=== PATIENT | male | born 1950 | race Caucasian/White ===

== ENCOUNTER → 2017-07-14 | Outpatient (CLI) | payer MEDICARE, OTHER ==
[~2017-07-14] MED LIST: DOXA4TAB2 PO; FLUT16SP22 NS
--- NOTE | 2017-07-14 14:31 | Diagnostic Imaging Report ---
INDICATION: COPD and dyspnea. TIME OF EXAM: 02:39 p.m. Correlation is made with prior study from 01/29/2014. FINDINGS: The heart size is stable. The lungs are hyperinflated consistent with COPD. There appears to be some chronic parenchymal density in the medial aspect of the right base, stable. No new parenchymal abnormality is seen. There is no effusion. No pneumothorax is identified. IMPRESSION: Stable chest radiographs when compared with examination from 01/29/2014. Dictated by: Dictated on workstation # [id number]
== END ==
LOC: RAD 13:57
PROVIDERS: ATTEND Internal Medicine
DX: J44.9 Chronic obstructive pulmonary disease, unspecified (principal)
CPT/HCPCS: 71046

== ENCOUNTER 2018-01-18 11:45 | Day surgery (SDC) | payer MEDICARE, OTHER ==
[~2018-01-18] VITALS: Ht 188 cm; Wt 98.9 kg
--- OUTSIDE RECORDS SUMMARY | 2018-01-18 11:51 | XMS REPORT | Continuity of Care Document ---
Author Author [facility] Organization [facility] Address Unknown Phone Unavailable Allergies Active Description Code Type Severity Reaction Onset Reported/Identified Relationship to Patient Clinical Status Yes No Known Allergies [id number] Drug Allergy Unknown N/A 01/29/2014 Medications There is no data. Problems Date Dx Coded Attending Type Code Diagnosis Diagnosed By 04/11/2014 LOPEZ JAMES, BENJI P Ot 173.32 SQUAMOUS CELL CARCINOMA OF SKIN OF OTH 04/11/2014 LOPEZ JAMES, BENJI P Ot 784.2 04/11/2014 LOPEZ JAMES, BENJI P Ot 785.6 ENLARGEMENT LYMPH NODES 04/13/2014 LOPEZ JAMES, BENJI P Ot 709.9 04/13/2014 LOPEZ JAMES, BENJI P Ot 784.2 04/13/2014 LOPEZ JAMES, BENJI P Ot V72.63 04/13/2014 LOPEZ JAMES, BENJI P Ot V74.8 05/03/2014 LOPEZ JAMES, BENJI P Ot 709.9 05/03/2014 LOPEZ JAMES, BENJI P Ot 784.2 05/03/2014 LOPEZ JAMES, BENJI P Ot V72.63 05/03/2014 LOPEZ JAMES, BENJI P Ot V74.8 05/20/2014 LOPEZ JAMES, BENJI P Ot 709.9 05/20/2014 LOPEZ JAMES, BENJI P Ot 784.2 05/20/2014 LOPEZ JAMES, BEJNI P Ot V72.63 05/20/2014 LOPEZ JAMES, BENJI P Ot V74.8 10/03/2014 SINDI CORTES DO Ot 496 10/03/2014 SINDI CORTES DO Ot 496 10/04/2014 SINDI CORTES DO Ot 496 10/04/2014 SINDI CORTES DO Ot 496 10/24/2014 SINDI CORTES DO Ot 496 11/15/2014 SINDI CORTES DO Ot 496 01/16/2015 SINDI CORTES DO Ot 780.79 01/16/2015 SINDI CORTES DO Ot 786.09 01/16/2015 BENJI MARROQUIN MD Ot 709.9 01/16/2015 BENJI MARROQUIN MD Ot 784.2 01/16/2015 BENJI MARROQUIN MD Ot V72.63 01/16/2015 BENJI MARROQUIN MD Ot V74.8 01/16/2015 SINDI CORTES DO Ot 496 02/05/2015 SINDI CORTES DO Ot 780.79 02/05/2015 SINDI CORTES DO Ot 786.09 02/05/2015 BENJI MARROQUIN MD Ot 709.9 02/05/2015 BENJI MARROQUIN MD Ot 784.2 02/05/2015 BENJI MARROQUIN MD Ot V72.63 02/05/2015 BENJI MARROQUIN MD Ot V74.8 02/05/2015 SINDI CORTES DO Ot 496 07/14/2017 SINDI CORTES DO Ot 780.79 OTH MALAISE FATIGUE 07/14/2017 SINDI CORTES DO Ot 786.09 RESPIRATORY ABNORM NEC 07/14/2017 BENJI MARROQUIN MD Ot 709.9 SKIN DISORDER NOS 07/14/2017 BENJI MARROQUIN MD Ot 784.2 SWELLING IN HEAD NECK 07/14/2017 BENJI MARROQUIN MD Ot V72.63 PRE-PROCEDURAL LABORATORY EXAMINATION 07/14/2017 BENJI MARROQUIN MD Ot V74.8 SCREEN-BACTERIAL DIS NEC 07/14/2017 SINDI CORTES DO Ot 496 CHR AIRWAY OBSTRUCT NEC 07/15/2017 SINDI CORTES DO, Ot J44.9 CHRONIC OBSTRUCTIVE PULMONARY DISEASE, U 07/21/2017 SINDI CORTES DO, Ot J44.9 CHRONIC OBSTRUCTIVE PULMONARY DISEASE, U 08/12/2017 SINDI CORTES DO, Ot J44.9 CHRONIC OBSTRUCTIVE PULMONARY DISEASE, U 08/29/2017 SINDI CORTES DO, Ot J44.9 CHRONIC OBSTRUCTIVE PULMONARY DISEASE, U Procedures There is no data. Results There is no data. Encounters ACCT No. Visit Date/Time Discharge Status Pt. Type Provider Facility Loc./Unit Complaint [id number] 07/14/2017 13:57:00 07/14/2017 23:59:59 [facility] Outpatient SINDI CORTES DO [facility] RAD J44.9,R06.00 [id number] 10/02/2014 08:25:00 10/02/2014 23:59:59 C[facility] Outpatient SINDI CORTES DO [facility] RT Chronic airway obstruction [id number] 04/11/2014 07:52:00 04/11/2014 13:00:00 DIS Outpatient BENJI MARROQUIN MD [facility] LEFT RELIGION LESION; NASAL PHARYNGEAL MASS [id number] 2014 08:28:00 2014 23:59:59 CLS Outpatient BENJI MARROQUIN MD [facility] PREOP LEFT RELIGION LESION; NASAL PHARYNGEAL MASS [id number] 01/29/2014 06:33:00 01/29/2014 23:59:59 CLS Outpatient SIDNI CORTES DO [facility] CARD DYSPNEA,FATIGUE
[2018-01-18 12:15] VITALS: BP 157/98
[2018-01-18] MEDS ORDERED: LACTATED RINGERS 1,000 ML IV SCH (12:30)
[2018-01-18] MEDS ORDERED: MIDAZOLAM 2 MG/2 ML (VERSED) VIAL ONE (13:02)
[2018-01-18] MEDS ORDERED: fentaNYL INJECTION 100 MCG/2 ML AMP ONE (13:02)
[2018-01-18] MEDS ORDERED: FINA5TAB6 PO (13:04)
[2018-01-18] MEDS ORDERED: ZYZAL PO (13:04)
[2018-01-18] MEDS ORDERED: TAMS0.4C98 PO (13:04)
[2018-01-18] MEDS ORDERED: MONT10TA21 PO (13:04)
--- NOTE | 2018-01-18 13:09 | History & Physicial ---
History of Present Illness History of Present Illness Reason for visit/HPI Painful swelling along the right scrotum. Exam confirms an abscess requiring I& D Date of Admission 01/18/18 Date Seen by a Provider: Jan 18, 2018 Time Seen by a Provider: 11:25 I consulted on this patient on 01/18/18 13:07 Attending Physician Ed Enrique MD Admitting Physician Makr Sanchez DO Consult Allergies and Home Medications Allergies Coded Allergies: No Known Allergies (Unverified Allergy, Unknown, 01/29/14) Home Medications Doxazosin Mesylate 4 Mg Tablet, 4 MG PO DAILY, (Reported) Finasteride 5 Mg Tablet, 5 MG PO DAILY, (Reported) Fluticasone Propionate 16 Gm Naspr, 2 SPRAYS NS DAILY, (Reported) Montelukast Sodium 10 Mg Tablet, 10 MG PO DAILY, (Reported) Tamsulosin HCl 0.4 Mg Cap, 0.4 MG PO DAILY, (Reported) [Zyzal] , 1 EA PO DAILY, (Reported) Patient Home Medication List Home Medication List Reviewed: Yes Past Bysfuyt-Yityfa-Ilztlu Hx Patient Social History Marrital Status: Employed/Student: retired Alcohol Use: Rarely Uses Alcohol Beverage of Choice: Beer Recreational Drug Use: No Smoking Status: Current Everyday Smoker Type Used: Cigarettes Recent Foreign Travel: No Contact w/other who traveled: No Recent Hopitalizations: No Seasonal Allergies Seasonal Allergies: Yes Surgeries Yes Respiratory No Cardiovascular No Gastrointestinal No Musculoskeletal No Review of Systems Constitutional: no symptoms reported EENTM: no symptoms reported Respiratory: no symptoms reported Cardiovascular: no symptoms reported Gastrointestinal: no symptoms reported Genitourinary: see HPI Musculoskeletal: no symptoms reported Skin: see HPI Psychiatric/Neurological: No Symptoms Reported Physical Exam Vital Signs Vital Signs - First Documented 01/18/18 12:15 Temp 98.4 Pulse 87 Resp 18 B/P (MAP) 157/98 (117) Pulse Ox 93 O2 Delivery Room Air Capillary Refill : Height, Weight, BMI Height: 6'2.00" Weight: 218lbs. 2.0oz. 98.724931sq; 28.0 BMI Method: General Appearance: Mild Distress Neck: Normal Inspection Cardiovascular: Regular Rate, Rhythm Gastrointestinal: Non Tender, Soft Genital/Rectal: Other Skin: Warm/Dry Comments Abscess along the right hemiscrotum Assessment/Plan Assessment and Plan Abscess of scrotum, for I&D Admission Diagnosis Admission Status: Other (Outpt Proc) ED ENRIQUE MD Jan 18, 2018 13:09
--- NOTE | 2018-01-18 13:10 | Progress Note-Pre Operative ---
Pre-Operative Progress Note H&P Reviewed The H&P was reviewed, patient examined and no changes noted. Date Seen by Provider: Jan 18, 2018 Time Seen by Provider: 11:25 Date H&P Reviewed: Jan 18, 2018 Time H&P Reviewed: 13:09 Pre-Operative Diagnosis: Abscess of scrotum ED ENRIQUE MD Jan 18, 2018 13:10
[2018-01-18] MEDS ORDERED: proPOfol 200 MG/20 ML (DIPRIVAN) VIAL IV ONE (13:14)
[2018-01-18] MEDS ORDERED: LIDOCAINE PF 2% 2 ML (XYLOCAINE) VIAL ONE (13:14)
[2018-01-18] MEDS ORDERED: SEVOFLURANE (ULTANE) 15 ML INHAL SOLN ONE ×3 (13:14→14:16)
[2018-01-18] MEDS ORDERED: DEXAMETHASONE 10 MG/ML (DECADRON) 1 ML VIAL ONE (13:14)
[2018-01-18] MEDS ORDERED: ONDANSETRON 4 MG/2 ML (SDV) Z0FRAN ONE (13:14)
[2018-01-18] MEDS ORDERED: ACHD5005 PO (13:15)
[2018-01-18] MEDS ORDERED: SUCCINYLCHOLINE INJ 100 MG/5 ML SYR ONE (13:17)
[2018-01-18] MEDS ORDERED: ROCURONIUM 10 MG/ML 5 ML SYRINGE IV ONE (13:17)
--- NOTE | 2018-01-18 13:17 | Discharge Inst-Simple/Standard ---
Discharge Inst-Standard Discharge Medications New, Converted or Re-Newed RX: RX on Chart Patient Instructions/Follow Up Plan of Care/Instructions/FU: Change dressing with ABD PADS as needed. f/u IN ONE WEEK Activity as Tolerated: Yes Discharge Diet: No Restrictions ED ENRIQUE MD Jan 18, 2018 13:17
[2018-01-18] MEDS ORDERED: ceFAZolin 2 GM IV Premixed 50 ML IV ONE (13:30)
--- NOTE | 2018-01-18 14:03 | Operative Report ---
Operative Report Date of Procedure/Surgery Jan 18, 2018 Surgeon (s) ED ENRIQUE MD Business Continuity Management Director (s): N/A Post-Operative Diagnosis Infected sebaceous cyst Procedure Performed excision of infected sebaceous cyst from the scrotum Description of Procedure Anesthesia Type: General Estimated blood loss (mL): minimal Specimen(s) collected/removed sac of infected sebaceous cyst Description of the Procedure Indication for the procedure: This gentleman presented with what appeared to be a scrotal abscess. He was offered formal incision and drainage. The potential for finding a sebaceous cyst, which could be excised was discussed with him. Informed consent was obtained after reviewing the details of the procedure and highlighting the potential for recurrence. Description of the procedure: He was placed supine on the operative table and general anesthesia induced. 2 g of Ancef were administered intravenously as prophylaxis against further infection. Subsequently, he was placed in a lithotomy position to achieve optimal exposure of the port. After adequate antiseptic progression, an elliptical incision was made and it became apparent that the condition was an infected sebaceous cyst. The purulent material was evacuated and the sac excised piecemeal. Hemostasis was achieved using cautery and the incision closed loosely with 5-0 nylon sutures. A nonadherent dressing was applied. He tolerated the procedure well, was admitted and taken to the recovery room in a stable condition Findings of the Procedure see op report Allergies and Home Medications Allergies Coded Allergies: No Known Allergies (Unverified Allergy, Unknown, 01/29/14) Home Medications Doxazosin Mesylate 4 Mg Tablet, 4 MG PO DAILY, (Reported) Finasteride 5 Mg Tablet, 5 MG PO DAILY, (Reported) Fluticasone Propionate 16 Gm Naspr, 2 SPRAYS NS DAILY, (Reported) Hydrocodone Bit/Acetaminophen 1 Tab Tab, 1 TAB PO Q6H PRN for PAIN-MODERATE Prescribed by: ED ENRIQUE on 01/18/18 1315 Montelukast Sodium 10 Mg Tablet, 10 MG PO DAILY, (Reported) Tamsulosin HCl 0.4 Mg Cap, 0.4 MG PO DAILY, (Reported) [Zyzal] , 1 EA PO DAILY, (Reported) Patient Home Medication List Home Medication List Reviewed: Yes ED ENRIQUE MD Jan 18, 2018 14:03
--- NOTE | 2018-01-18 14:49 | Anesthesia-General Post-Op ---
General Patient Condition Mental Status/LOC: Same as Preop Cardiovascular: Satisfactory Nausea/Vomiting: Absent Respiratory: Satisfactory Pain: Controlled Complications: Absent Post Op Complications Complications None Follow Up Care/Instructions Patient Instructions None needed. Anesthesia/Patient Condition Patient Condition Patient is doing well, no complaints, stable vital signs, no apparent adverse anesthesia problems. No complications reported per nursing. LEIDA GOMEZ CRNA Jan 18, 2018 14:49
[2018-01-18 15:00] VITALS: BP 147/92
[2018-01-18 15:30] VITALS: BP 143/86
[2018-01-18 16:01] VITALS: BP 143/86
[2018-01-18 16:03] VITALS: BP 130/90
--- NOTE | 2018-01-20 12:21 | Physician Query-General Query ---
Physician Query-General Query to Physician: Can you please provide the size of the scrotal sebaceous cyst? PHYSICIAN RESPONSE: Based on the clinical findings in the record, please respond to the query above on this document as an addendum. Possible, probable, or questionable diagnosis can be coded for INPATIENTS ONLY. Physician Response: Physician Response 3 cm If you have questions please contact: Senior Sas Developer: Ext: Thank you for your time and cooperation. Clinical Arch Pad Cementer/Senior Sas Developer This is a permanent part of the medical record JAMES COREA Jan 20, 2018 12:21 ED ENRIQUE MD Jan 20, 2018 14:19
== END 2018-01-18 16:03 | disposition home or self-care (01) ==
LOC: SDC 11:45
PROVIDERS: ATTEND Surgery
DX: L72.9 Follicular cyst of the skin and subcutaneous tissue, unspecified (principal); Z11.2 Encounter for screening for other bacterial diseases; J44.9 Chronic obstructive pulmonary disease, unspecified; F17.210 Nicotine dependence, cigarettes, uncomplicated; Z79.899 Other long term (current) drug therapy
CPT/HCPCS: 87081

== ENCOUNTER → 2019-05-02 | Outpatient (CLI) | payer MEDICARE, OTHER ==
[~2019-05-02] MED LIST changes: +ACHD5005 PO; +FINA5TAB6 PO; +MONT10TA21 PO; +TAMS0.4C98 PO; +ZYZAL PO
--- NOTE | 2019-05-02 15:39 | Diagnostic Imaging Report ---
INDICATION: Sinusitis and cough. TIME OF EXAMINATION: 3:39 PM. COMPARISON: Correlation is made with the prior chest from 07/14/2017. FINDINGS: The heart size is stable. The right basilar density is stable. No new infiltrate is detected. There is no effusion or pneumothorax. The lungs are hyperinflated, consistent with COPD. IMPRESSION: Stable chronic changes when compared with the examination from 07/14/2017. Dictated by: Dictated on workstation # [id number]
== END ==
LOC: RAD 15:25
PROVIDERS: ATTEND Otolaryngology Otolaryngology/Facial Plastic Surgery
DX: J32.9 Chronic sinusitis, unspecified (principal)
CPT/HCPCS: 71046

== ENCOUNTER → 2019-05-23 | Outpatient (CLI) | payer MEDICARE, OTHER ==
[~2019-05-23] MED LIST changes: -TAMS0.4C98 PO; +TMSL.4C PO
--- NOTE | 2019-05-23 09:09 | Diagnostic Imaging Report ---
PROCEDURE: CT sinuses without contrast TECHNIQUE: Multiple contiguous axial images were obtained through the sinuses without the use of intravenous contrast. Coronal and sagittal reformations were then performed. Auto Exposure Controls were utilized during the CT exam to meet ALARA standards for radiation dose reduction. INDICATION: Chronic sinusitis. FINDINGS: The frontal, ethmoid, sphenoid and maxillary sinuses are clear. There are no daniel bullosa. The ostiomeatal complexes are widely patent. There is some tortuosity of the nasal septum. The nasopharyngeal soft tissues are symmetrical without evidence of mass effect. The visualized globes and intraorbital structures are unremarkable. IMPRESSION: Tortuosity of the nasal septum otherwise unremarkable CT sinus. Dictated by: Dictated on workstation # [id number]
== END ==
LOC: RAD 08:02
PROVIDERS: ATTEND Otolaryngology Otolaryngology/Facial Plastic Surgery
DX: J32.9 Chronic sinusitis, unspecified (principal)
CPT/HCPCS: 70486

== ENCOUNTER → 2020-01-24 | Outpatient (CLI) | payer MEDICARE ==
--- NOTE | 2020-01-24 14:57 | Diagnostic Imaging Report ---
INDICATION: Chest pain. TIME OF EXAM: 2:36 p.m. COMPARISON: Correlation is made with prior chest from 05/02/2019. FINDINGS: Heart size is stable. Lungs are hyperinflated consistent with COPD. No infiltrates are seen. There is no effusion or pneumothorax. IMPRESSION: COPD. No acute feature is detected. Dictated by: Dictated on workstation # [id number]
== END ==
LOC: RAD 14:25
PROVIDERS: ATTEND Internal Medicine
DX: J44.9 Chronic obstructive pulmonary disease, unspecified (principal)
CPT/HCPCS: 71046

== ENCOUNTER → 2020-01-25 | Outpatient (CLI) | payer MEDICARE, OTHER ==
[~2020-01-25] VITALS: Ht 188 cm; Wt 111.0 kg
[~2020-01-25] MED LIST changes: +CATHETER FLUSH 10 ML SYR IV PRN; +REGADENOSON 0.4 MG/5 ML SYR (LEXISCAN) IV ONE
[2020-01-25 08:05] VITALS: BP 196/112
--- NOTE | 2020-01-29 12:36 | STRESS TEST ---
DATE OF SERVICE: 01/25/2020 RESTING AND POST REGADENOSON TECHNETIUM-99M TETROFOSMIN SPECT CT IMAGING ORDERING PHYSICIAN: Dr. Sanchez. CLINICAL DIAGNOSIS: Chest pain. Baseline images were carried out after injection of 10.27 mCi of technetium-99m Tetrofosmin. This was followed by 0.4 mg regadenoson and 31.6 mCi of technetium-99m Tetrofosmin for stress imaging. Shortly after the regadenoson infusion, the patient had advanced atrioventricular block, which appears to have resolved spontaneously. The study was performed under Dr. Sanchez's supervision and this part is to be reported separately by him. Review of images at rest and following stress indicates a small basal inferior perfusion defect that appears transient. Gated images show normal global left ventricular systolic function with normal regional wall motion. Left ventricular ejection fraction is calculated to be 46%. Left ventricular end diastolic volume is 57 mL. TID is absent (1.07). CONCLUSIONS: 1. This study is suggestive of a small amount of basal inferior ischemia. 2. Left ventricular ejection fraction is calculated to be 46%. 3. No regional wall motion abnormality. 4. Transient advanced atrioventricular block following regadenoson infusion. Job ID: [id number] DocumentID: [id number] Dictated Date: 01/29/2020 12:24:42 Systems Software Designer Date: 01/29/2020 12:35:00 Dictated By: TAZ MONTELONGO MD, MA, FACP, FACC,
== END ==
LOC: CARD 07:00
PROVIDERS: ATTEND Internal Medicine
DX: R07.9 Chest pain, unspecified (principal)
CPT/HCPCS: 78452; 93017; A9502

== ENCOUNTER → 2020-10-17 | Outpatient (CLI) | payer MEDICARE, OTHER ==
[~2020-10-17] MED LIST changes: -CATHETER FLUSH 10 ML SYR IV PRN; -REGADENOSON 0.4 MG/5 ML SYR (LEXISCAN) IV ONE; +RT-ALBUTEROL SULF 2.5 MG/3 ML PRE-MIX VIAL INH ONE
[2020-10-17 08:05] LABS: ABG BASE EXCESS -0.3 MMOL/L (-2.5-2.5); ABG OXYGEN SATURATION 91 % (94-100); ABG PCO2 42 MMHG (35-45); ABG PH 7.38 (7.37-7.43); ABG PO2 62 MMHG (79-93); ABG TCO2 25.6 MMOL/L (21.0-31.0)
[2020-10-17 08:07] LABS: INSPIRED O2 ROOM AIR; PATIENT TEMP 36.6; VENTILATOR NO
== END ==
LOC: RT 08:00
PROVIDERS: ATTEND Nurse Practitioner Family
DX: J44.9 Chronic obstructive pulmonary disease, unspecified (principal)
CPT/HCPCS: 36600; 82805; 94060; 94726; 94729

== ENCOUNTER → 2021-01-27 | Outpatient (CLI) | payer MEDICARE, OTHER ==
[~2021-01-27] MED LIST changes: -RT-ALBUTEROL SULF 2.5 MG/3 ML PRE-MIX VIAL INH ONE
--- NOTE | 2021-01-27 10:23 | Diagnostic Imaging Report ---
EXAMINATION: Chest 2 view HISTORY: EMPHYSEMA COMPARISON: 01/24/2020 FINDINGS: Heart size and pulmonary vasculature are normal. The lungs are clear without consolidation, pleural effusion, or pneumothorax. Stable mild hyperexpansion of the lungs compatible with history of COPD. Stable mild coarse interstitial opacities in the lung bases. The osseous structures are intact. IMPRESSION: 1. No acute radiographic abnormality in the chest. Dictated by: Dictated on workstation # [id number]
== END ==
LOC: RAD 09:24
PROVIDERS: ATTEND Urology
DX: J43.9 Emphysema, unspecified (principal)
CPT/HCPCS: 71046

== ENCOUNTER → 2021-03-18 | Outpatient (CLI) | payer MEDICARE, OTHER ==
--- NOTE | 2021-03-18 14:01 | Diagnostic Imaging Report ---
EXAMINATION: CT chest without contrast (lung screening). TECHNIQUE: Multiple contiguous axial images were obtained through the chest without the use of intravenous contrast according to lung cancer screening protocol. All CT scans use one or more of the following dose optimizing techniques: Automated exposure control, MA and/or KvP adjustment based on patient size and exam type or iterative reconstruction. HISTORY: 15-[id number]-jjzy history of smoking. COMPARISON: None available. FINDINGS: There is no edema or pneumonia. No pleural effusion. No pneumothorax. No suspicious nodules. Lungs are severely emphysematous. There is no axillary or supraclavicular lymphadenopathy. There is no mediastinal lymphadenopathy. Heart size is normal. There are mild coronary artery calcifications. No pericardial effusion. Aorta is normal in caliber. Limited views of the upper abdomen are unremarkable. There are no suspicious osseous lesions. IMPRESSION: 1. No suspicious pulmonary nodules. LUNG-RADS CATEGORY: 1 MODIFIER: None. Dictated by: Dictated on workstation # [id number]
== END ==
LOC: RAD 12:45
PROVIDERS: ATTEND Internal Medicine Critical Care Medicine
DX: Z12.2 Encounter for screening for malignant neoplasm of respiratory organs (principal); Z87.891 Personal history of nicotine dependence
CPT/HCPCS: 71271